=== PATIENT | female | born 1955 ===

== ENCOUNTER 2022-11-25 15:19 | Emergency (ER) | payer OTHER, SELFPAY ==
[2022-11-25 15:30] VITALS: BP 164/84; PULSE 89; RESP 14; TEMP 36.6; O2SAT 97; BMI 29.2
--- NOTE | 2022-11-25 15:50 | ED.WOUNDLAC ---
HPI - Wound/Laceration <Malia Hawkins PA-C - Last Filed: 11/25/22 19:01> General Chief Complaint: Wound/Laceration Stated Complaint: Nose inj Time Seen by Provider: 11/25/22 15:50 Source: patient and family Mode of arrival: Ambulatory History of Present Illness HPI narrative: This is a 67-year-old female who presents with her with concern for injury to her nose sustained shortly before arrival. Patient states that she was at a pottery store with a lot of outdoor powder[place] [address] when she stepped on part of a [place] that had a loose board and when she stepped on 1 end of the board of the opposite and flipped up and smashed her in the nose. She states it was ?just like in the cartoons?. She immediately had pain and a nosebleed she states that the nosebleed stopped within about 5 minutes and has not recurred. She did not fall to the ground, hit her head or sustain any other injury. She denies numbness or tingling of her face, headache, vision change, eye pain, any other symptoms. She states she is not on blood thinners. Related Data Allergies Allergy/AdvReac Type Severity Reaction Status Date / Time Penicillins Allergy Intermediate Hives Verified 11/25/22 15:38 acetaminophen [From Vicodin] AdvReac Intermediate Vomiting Verified 11/25/22 15:38 adhesive tape AdvReac Intermediate Blister Verified 11/25/22 15:38 hydrocodone [From Vicodin] AdvReac Intermediate Vomiting Verified 11/25/22 15:38 Review of Systems <Malia Hawkins PA-C - Last Filed: 11/25/22 19:01> Review of Systems Narrative: See HPI Patient History <Malia Hawkins PA-C - Last Filed: 11/25/22 19:01> Social History Smoking Status: Never smoker Smoking Status: Never smoker alcohol intake frequency: a few times a week Substance Use Type: marijuana Exam <Malia Hawkins PA-C - Last Filed: 11/25/22 19:01> Narrative Exam Narrative: GENERAL: 67 year old patient appears stated age. Well-developed patient, in mild distress. HEAD: There is slight swelling about the upper nasal bones slightly more prominent on the right, there is slight bruise forming on the right side of the face just medial and inferior to the right eye. Facial bones are stable, nasal bones are stable. Slight tenderness present only with palpation over the area of swelling and bruising. There is a 2-3 mm superficial laceration at the bridge of the nose. Otherwise Atraumatic. Normocephalic. EYES: Pupils equal round and reactive. Extraocular motions intact. No scleral icterus. No injection or drainage. ENT: Nose without bleeding, purulent drainage. Airway patent. Nasal exam shows no hematoma, septum is midline, no persistent epistaxis. NECK: Trachea midline. Non tender CARDIOVASCULAR: Regular rate and rhythm without murmurs, gallops, or rubs. RESPIRATORY: Clear to auscultation. Breath sounds equal bilaterally. No wheezes, rales, or rhonchi. EXTREMITIES: No edema or joint tenderness. BACK: Nontender without deformity or crepitance. No flank tenderness. NEURO: AOx3. SKIN: No rash or erythema of visible areas Initial Vital Signs Initial Vital Signs: Vital Signs Temperature 97.9 F 11/25/22 15:30 Pulse Rate 89 11/25/22 15:30 Respiratory Rate 14 11/25/22 15:30 Blood Pressure 164/84 H 11/25/22 15:30 Pulse Oximetry 97 11/25/22 15:30 Oxygen Delivery Method Room Air 11/25/22 15:30 <Tarah Navarrete DO - Last Filed: 11/26/22 08:42> Initial Vital Signs Initial Vital Signs: Vital Signs Temperature 97.9 F 11/25/22 15:30 Pulse Rate 89 11/25/22 15:30 Respiratory Rate 14 11/25/22 15:30 Blood Pressure 164/84 H 11/25/22 15:30 Pulse Oximetry 97 11/25/22 15:30 Oxygen Delivery Method Room Air 11/25/22 15:30 Course <Malia Hawkins PA-C - Last Filed: 11/25/22 19:01> Course Course Narrative: Did discuss this patient with Dr. Muse, attending physician regarding whether or not to pursue imaging. Based on the fact that the patient did not take blood thinners, exam is not concerning and she has no significant bruising decision not to pursue imaging today. Vital Signs Vital signs: Vital Signs - 8 hr 11/25/22 15:30 11/25/22 16:55 Temperature 97.9 F Pulse Rate 89 Respiratory Rate 14 Blood Pressure 164/84 H 128/80 Pulse Oximetry 97 Oxygen Delivery Method Room Air <Tarah Navarrete DO - Last Filed: 11/26/22 08:42> Course Course Narrative: Did discuss this patient with Dr. Navarrete, attending physician regarding whether or not to pursue imaging. Based on the fact that the patient did not take blood thinners, exam is not concerning and she has no significant bruising decision not to pursue imaging today. Vital Signs Vital signs: Vital Signs - 8 hr 11/25/22 15:30 11/25/22 16:55 Temperature 97.9 F Pulse Rate 89 Respiratory Rate 14 Blood Pressure 164/84 H 128/80 Pulse Oximetry 97 Oxygen Delivery Method Room Air MDM - Wound/Laceration <Malia Hawkins PA-C - Last Filed: 11/25/22 19:01> Differential Diagnosis Differential diagnosis: Likely laceration, abrasion and other (epistaxis, blunt trauma to nose/face) Medical Records Attestation: I reviewed the patient's medical records. MDM Narrative Medical decision making narrative: This is a 67-year-old female who is not on blood thinners who presents with her after she sustained blunt trauma to her nose when she stepped on a loose board and the opposite end flipped up and hit her face. Facial bones are stable and she had a brief epistaxis that resolved within 5 minutes of the injury. No septal hematoma or concerning exam findings. Patient had no loss of consciousness fall or other injury. After discussion with the patient and attending physician elected not to pursue any further imaging. Counseled the patient she can certainly seek re-evaluation if she feels she has new or persistent symptoms. Patient did also have a very superficial laceration that did not require repair. Counseled regarding return precautions, follow-up plan discussed, all questions answered. Discharge Plan Departure Patient Disposition: Home Clinical Impression: Blunt trauma of face, Epistaxis Activity Restrictions/Additional Instructions: Thank you for letting us be part of your care today in the emergency department, and thank you for your patience. It is true that you were my 1st patient who had the classic cartoon injury of stepping on a board and having it come up to hit their nose! After discussing your injury and doing an exam today we did not feel that advanced imaging was warranted as it seems very unlikely that you have any fracture of facial bones or your nasal bones. As we discussed if you develop a recurrent persistent nosebleed, severe headache, vision changes, difficulty with balance or coordination, dizziness please do not hesitate to seek re-evaluation in an emergency department. Otherwise I anticipate you will heal well you will likely have somewhat increased bruising over the next day or 2 you can do ice for a maximum of 15 minutes at a time on and off over the next 12-24 hours. You can also take Tylenol and ibuprofen for pain and swelling. There is no evidence of an emergent or life threatening illness at this time, but follow up with your doctor in 1-2 days is recommended nonetheless to continue to rule out serious underlying causes of your symptoms. Please call the office for an appointment. Please return to the Emergency Department for any worsening or persistent symptoms. Please take medications as directed. Stand Alone Forms: Patient Portal/API <Tarah Navarrete DO - Last Filed: 11/26/22 08:42> Cosign ED Attending [place] Attestation: I was immediately available in the department for consultation. Case was discussed. Discussed possibility of nasal fracture but nasal bone x-rays will likely not change course of action, no high suspicion for other facial bone injuries.
[2022-11-25 16:55] VITALS: BP 128/80
== END 2022-11-25 17:26 | disposition home or self-care (01) ==
PROVIDERS: Emergency Provider Student in an Organized Health Care Education/Training Program
DX: S09.92XA Unspecified injury of nose, initial encounter (principal); R04.0 Epistaxis; W22.8XXA Striking against or struck by other objects, initial encounter
CPT/HCPCS: 99281; 99283